=== PATIENT | female | born 1985 | race Caucasian/White ===

== ENCOUNTER 2020-11-02 11:15 | Outpatient (RCR) | payer OTHER, SELFPAY ==
[2020-10-05 09:59] VITALS: BP 116/79; PULSE 79
[2020-10-12 13:35] LABS: Hematocrit 37.4 % (37.0-47.0); Hemoglobin 12.9 g/dL (12.0-15.0); Mean Corpuscular HGB Conc 34.5 g/dl (32-36); Mean Corpuscular Hemoglobin 31.8 pg (26-34); Mean Corpuscular Volume 92.1 fl (80-100); Mean Platelet Volume 10.2 fl (7.4-10.4); Platelet Count Result 185 k/mm3 (150-375); Red Blood Count 4.06 M/mm3 (4.2-5.4); Red Cell Distribution Width 13.9 % (11.5-14.5)
[2020-10-12 13:37] LABS: Add Urine Microscopic? NO; Appearance Urine Clear (Clear); Bilirubin Urine Negative (Negative); Blood Urine Negative (Negative); Color Urine Straw (Yellow); Glucose Urine UA Negative (Negative); Ketones Urine Negative (Negative); Leukocyte Esterase Ur Negative LEU/UL (Negative); Nitrate Urine Negative (Negative); Protein Urine Negative (Negative); Specific Grav Ur 1.005 (1.001-1.035); Urobilinogen Urine Negative mg/dL (<2.0)
[2020-10-12 13:47] LABS: Alanine Aminotransferase 19 U/L (4-35); Albumin Level 3.4 g/dL (3.5-5.1); Alkaline Phosphatase 167 U/L (38-126); Anion Gap 4 mmol/L (8-16); Aspartate Amino Transferase 36 U/L (14-36); Bilirubin,Total 0.2 mg/dL (0.2-1.3); Blood Urea Nitrogen 13 mg/dL (7-17); Calcium 9.1 mg/dL (8.4-10.2); Carbon Dioxide 22 mmol/L (22-30); Chloride 107 mmol/L (98-107); Estimated Glomerular Filt Rate > 60; Glucose 71 mg/dL (65-105); Potassium 3.9 mmol/L (3.4-5.0); Sodium 133 mmol/L (137-145); Uric Acid 5.1 mg/dL (2.5-7.5)
[2020-10-12 14:10] LABS: Creatinine Urine 22.5 mg/dL; Total Protein Urine Random 13 mg/dL; Ur Ttl Prot Creatinine Ratio 0.58 mg/mg (0-0.20)
[2020-10-12 14:22] VITALS: BP 143/93; PULSE 71
--- NOTE | 2020-10-12 14:22 | PC.NURSE ---
PIH handout and warning signs of preeclampsia handout also given to and reviewed with pt. Pt verbalizes understanding.
[2020-10-15 10:32] VITALS: BP 136/88; PULSE 74
[2020-10-19 10:16] VITALS: BP 125/86; PULSE 84
[2020-10-22 13:56] VITALS: BP 132/90; PULSE 83
[2020-10-26 11:18] LABS: Basophils Percent Auto 0.3 % (0.2-1.2); Eosinophils Absolute Auto 0.1 K/mm3 (0-0.3); Eosinophils Percent Auto 0.8 % (0-4.4); Immature Granulocyte Absolute 0.04 K/mm3 (0.00-0.031); Immature Granulocyte Percent A 0.5 % (0-0.5); Lymphocytes Absolute Auto 1.46 K/mm3 (0.9-3.2); Lymphocytes Percent Auto 18.8 % (18.3-44.2); Mean Corpuscular HGB Conc 34.2 g/dl (32-36); Mean Corpuscular Hemoglobin 31.5 pg (26-34); Mean Platelet Volume 10.5 fl (7.4-10.4); Monocytes Absolute Auto 0.7 K/mm3 (0.1-0.6); Monocytes Percent Auto 9.5 % (2.6-8.5); Neutrophils Absolute Auto 5.5 K/mm3 (1.3-6.7); Neutrophils Percent Auto 70.1 % (45.5-73.1); Platelet Count Result 157 k/mm3 (150-375); Red Blood Count 4.13 M/mm3 (4.2-5.4); Red Cell Distribution Width 14.2 % (11.5-14.5); White Blood Count 7.8 K/mm3 (4.5-10.0)
[2020-10-26 11:19] LABS: Add Urine Microscopic? NO; Appearance Urine Clear (Clear); Bilirubin Urine Negative (Negative); Blood Urine Negative (Negative); Color Urine Straw (Yellow); Glucose Urine UA Negative (Negative); Ketones Urine Negative (Negative); Leukocyte Esterase Ur Negative LEU/UL (NEGATIVE); Nitrate Urine Negative (Negative); Protein Urine Negative (Negative); Urobilinogen Urine Negative mg/dL (<2.0)
[2020-10-26 11:23] LABS: Creatinine Urine 17.2 mg/dL; Total Protein Urine Random 15 mg/dL; Ur Ttl Prot Creatinine Ratio 0.87 mg/mg (0-0.20)
[2020-10-26 11:29] LABS: Alanine Aminotransferase 16 U/L (4-35); Albumin Level 3.4 g/dL (3.5-5.1); Alkaline Phosphatase 178 U/L (38-126); Anion Gap 5 mmol/L (8-16); Aspartate Amino Transferase 35 U/L (14-36); Bilirubin,Total 0.3 mg/dL (0.2-1.3); Blood Urea Nitrogen 13 mg/dL (7-17); Calcium 9.2 mg/dL (8.4-10.2); Carbon Dioxide 22 mmol/L (22-30); Chloride 105 mmol/L (98-107); Estimated Glomerular Filt Rate > 60; Glucose 79 mg/dL (65-105); Potassium 4.5 mmol/L (3.4-5.0); Sodium 132 mmol/L (137-145); Uric Acid 5.9 mg/dL (2.5-7.5)
[2020-10-26 11:57] LABS: Specific Grav Ur 1.004 (1.001-1.035)
--- NOTE | 2020-10-26 12:51 | PM.OBTRLD ---
OB - Triage/Final Diagnosis Visit Information Date of evaluation: 10/26/20 Reason for evaluation: other (twins/gest htn) Comments/Additional reasons for admission: I have assessed the risk for this patient, Suzie Montalvo, and determined that she would benefit from observation care. Evaluation Laboratory results: Laboratory Tests 10/12/20 10/12/20 10/12/20 13:12 13:12 13:12 WBC 9.0 RBC 4.06 L Hgb 12.9 Hct 37.4 MCV 92.1 MCH 31.8 MCHC 34.5 RDW 13.9 Plt Count 185 MPV 10.2 Immature Gran % (Auto) Neut % (Auto) Lymph % (Auto) [place] % (Auto) Eos % (Auto) Baso % (Auto) Lymph # (Auto) [place] # (Auto) Eos # (Auto) Baso # (Auto) Abs Immat Gran (auto) Absolute Neuts (auto) Absolute Nucleated RBC Nucleated RBC % Sodium Potassium Chloride Carbon Dioxide Anion Gap BUN Creatinine Estim Creat Clear Calc Estimated GFR Glucose Uric Acid Calcium Total Bilirubin AST ALT Alkaline Phosphatase Total Protein Albumin Urine Color Straw Urine Appearance Clear Urine pH 7.0 Ur Specific [place] 1.005 Urine Protein Negative Urine Glucose (UA) Negative Urine Ketones Negative Ur Blood (Man) Negative Urine Nitrate Negative Urine Bilirubin Negative Urine Urobilinogen Negative Ur Leukocyte Esterase Leukocyte Esterase Rfl Negative U Random Total Protein 13 Urine Creatinine 22.5 Protein/Creat Ratio 2 0.58 H 10/12/20 10/26/20 10/26/20 13:12 11:03 11:03 WBC RBC Hgb Hct MCV MCH MCHC RDW Plt Count MPV Immature Gran % (Auto) Neut % (Auto) Lymph % (Auto) [place] % (Auto) Eos % (Auto) Baso % (Auto) Lymph # (Auto) [place] # (Auto) Eos # (Auto) Baso # (Auto) Abs Immat Gran (auto) Absolute Neuts (auto) Absolute Nucleated RBC Nucleated RBC % Sodium 133 L Potassium 3.9 Chloride 107 Carbon Dioxide 22 Anion Gap 4 L BUN 13 Creatinine 0.70 Estim Creat Clear Calc Not Reportable Estimated GFR > 60 Glucose 71 Uric Acid 5.1 Calcium 9.1 Total Bilirubin 0.2 AST 36 ALT 19 Alkaline Phosphatase 167 H Total Protein 6.0 L Albumin 3.4 L Urine Color Straw Urine Appearance Clear Urine pH 7.0 Ur Specific [place] 1.004 Urine Protein Negative Urine Glucose (UA) Negative Urine Ketones Negative Ur Blood (Man) Negative Urine Nitrate Negative Urine Bilirubin Negative Urine Urobilinogen Negative Ur Leukocyte Esterase Negative Leukocyte Esterase Rfl U Random Total Protein 15 Urine Creatinine 17.2 Protein/Creat Ratio 2 0.87 H 10/26/20 10/26/20 11:03 11:03 WBC 7.8 RBC 4.13 L Hgb 13.0 Hct 38.0 MCV 92.0 MCH 31.5 MCHC 34.2 RDW 14.2 Plt Count 157 MPV 10.5 H Immature Gran % (Auto) 0.5 Neut % (Auto) 70.1 Lymph % (Auto) 18.8 [place] % (Auto) 9.5 H Eos % (Auto) 0.8 Baso % (Auto) 0.3 Lymph # (Auto) 1.46 [place] # (Auto) 0.7 H Eos # (Auto) 0.1 Baso # (Auto) 0.0 Abs Immat Gran (auto) 0.04 H Absolute Neuts (auto) 5.5 Absolute Nucleated RBC 0.0 Nucleated RBC % 0.0 Sodium 132 L Potassium 4.5 Chloride 105 Carbon Dioxide 22 Anion Gap 5 L BUN 13 Creatinine 0.70 Estim Creat Clear Calc Not Reportable Estimated GFR > 60 Glucose 79 Uric Acid 5.9 Calcium 9.2 Total Bilirubin 0.3 AST 35 ALT 16 Alkaline Phosphatase 178 H Total Protein 6.0 L Albumin 3.4 L Urine Color Urine Appearance Urine pH Ur Specific [place] Urine Protein Urine Glucose (UA) Urine Ketones Ur Blood (Man) Urine Nitrate Urine Bilirubin Urine Urobilinogen Ur Leukocyte Esterase Leukocyte Esterase Rfl U Random Total Protein Urine Creatinine Protein/Creat Ratio 2
[2020-10-29 15:49] VITALS: BP 140/83; PULSE 83
[2020-11-02 11:40] VITALS: BP 132/85; PULSE 85
--- NOTE | 2020-11-03 07:38 | PM.IMHP ---
H&P: HPI History of Present Illness Date/Time: 11/03/20 07:38 35-year-old 6 para 1 whose last menstrual period was 02/19/2020, EDC is 11/21/2020, presents at 38 weeks gestation for primary section. She has a diamniotic dichorionic twin with an abnormal lie of twin a. Her blood pressures have been rising. Early ultrasound confirmed dates Chief Complaint: diamniotic dichorionic twins with abnormal lie and elevated blood pressures at term Review of Systems Review of Systems: All systems reviewed & are unremarkable except as noted in HPI and below Meds Home Medications and Allergies Home Medications Medication Instructions Recorded Confirmed Type PNV cmb#95-ferrous fumarate-FA 1 tablet PO HS 10/12/20 10/12/20 History [] aspirin [Adult Low Dose Aspirin] 162 mg PO HS 10/12/20 10/12/20 History cholecalciferol (vitamin D3) 125 mcg PO DAILY 10/12/20 10/12/20 History [Vitamin D3] docusate sodium [Colace] 100 mg PO DAILY PRN 10/12/20 10/12/20 History Allergies Allergy/AdvReac Type Severity Reaction Status Date / Time No Known Allergies Allergy Verified 10/12/20 12:21 Vital Signs Vital Signs - 24 hr 11/02/20 11:40 Pulse Rate 85 Blood Pressure [Left Arm] 132/85 Exam Const: General: no acute distress Eyes: General: appearance normal, both eyes and all related structures Neck: Neck: supple and no JVD Thyroid: thyroid normal Resp: Effort & Inspection: normal respiratory effort Auscultation: clear to auscultation bilaterally Cardio: Rate: regular rate Rhythm: regular rhythm GI: Inspection: non-distended GI Palp: Yes Soft to palpation, No Tenderness to palpation present (GI) and No Guarding due to palpation present (GI) Auscultation: normal bowel sounds : External Female Exam: normal external appearance Speculum Exam - Vagina: normal appearance of the vagina Speculum Exam - Cervix: Cervical os closed ( cervix 1cm in thick) Bimanual exam- vagina & uterus: enlarged (Gravid uterus consistent with twins) Skin: General skin exam: no rashes or lesions noted Extrem: General: normal to inspection and no edema Psych: Mental Status: mental status grossly normal Affect: normal affect Assessment and Plan Additional Plan impression: Twin with abnormal lie elevated blood pressures at 38 weeks Plan: Primary low-transverse section. PIH labs will be drawn
== END 2020-11-09 07:41 | disposition home or self-care (01) ==
LOC: ANHOBOP 11:15
PROVIDERS: Visit Provider Obstetrics & Gynecology
DX: O30.003 Twin pregnancy, unspecified number of placenta and unspecified number of amniotic sacs, third trimester (principal); Z3A.32 32 weeks gestation of pregnancy; Z3A.33 33 weeks gestation of pregnancy; Z3A.34 34 weeks gestation of pregnancy; Z3A.35 35 weeks gestation of pregnancy; Z3A.36 36 weeks gestation of pregnancy; Z3A.37 37 weeks gestation of pregnancy
CPT/HCPCS: 36415; 59025; 80053; 81003; 82570; 84156; 84550; 85025; 85027; 87086

== ENCOUNTER 2020-11-04 10:35 | Outpatient (CLI) | payer OTHER, SELFPAY ==
[2020-11-04 10:59] LABS: Hematocrit 38.8 % (37.0-47.0); Hemoglobin 13.3 g/dL (12.0-15.0); Mean Corpuscular HGB Conc 34.3 g/dl (32-36); Mean Corpuscular Hemoglobin 31.5 pg (26-34); Mean Corpuscular Volume 91.9 fl (80-100); Mean Platelet Volume 10.7 fl (7.4-10.4); Platelet Count Result 148 k/mm3 (150-375); Red Blood Count 4.22 M/mm3 (4.2-5.4); Red Cell Distribution Width 14.5 % (11.5-14.5); White Blood Count 7.5 K/mm3 (4.5-10.0)
[2020-11-05 06:47] LABS: Rapid Plasma Reagin Non-Reactive (NonReactive)
== END 2020-11-04 10:36 | disposition home or self-care (01) ==
PROVIDERS: Visit Provider Obstetrics & Gynecology
DX: Z01.812 Encounter for preprocedural laboratory examination (principal); Z51.81 Encounter for therapeutic drug level monitoring; Z79.899 Other long term (current) drug therapy
CPT/HCPCS: 36415; 85027; 86592; 86850; 86900; 86901

== ENCOUNTER 2020-11-05 05:32 | Inpatient (IN) | payer OTHER, SELFPAY ==
--- NOTE | 2020-11-03 07:41 | HP_ITS ---
This report was moved to the correct visit, [id number], on November 10, 2020. Original report was signed by Dr. Terrell Dorado on November 03, 2020 at 07:41. H&P: HPI History of Present Illness Date/Time: 11/03/20 07:38 35-year-old 6 para 1 whose last menstrual period was 02/19/2020, EDC is 11/21/2020, presents at 38 weeks gestation for primary section. She has a diamniotic dichorionic twin with an abnormal lie of twin a. Her blood pressures have been rising. Early ultrasound confirmed dates Chief Complaint: diamniotic dichorionic twins with abnormal lie and elevated blood pressures at term Review of Systems Review of Systems: All systems reviewed & are unremarkable except as noted in HPI and below Meds Home Medications and Allergies Home Medications Medication Instructions Recorded Confirmed Type PNV cmb#95-ferrous fumarate-FA 1 tablet PO HS 10/12/20 10/12/20 History [] aspirin [Adult Low Dose Aspirin] 162 mg PO HS 10/12/20 10/12/20 History cholecalciferol (vitamin D3) 125 mcg PO DAILY 10/12/20 10/12/20 History [Vitamin D3] docusate sodium [Colace] 100 mg PO DAILY PRN 10/12/20 10/12/20 History Allergies Allergy/AdvReac Type Severity Reaction Status Date / Time No Known Allergies Allergy Verified 10/12/20 12:21 Vital Signs Vital Signs - 24 hr 11/02/20 11:40 Pulse Rate 85 Blood Pressure [Left Arm] 132/85 Exam Const: General: no acute distress Eyes: General: appearance normal, both eyes and all related structures Neck: Neck: supple and no JVD Thyroid: thyroid normal Resp: Effort & Inspection: normal respiratory effort Auscultation: clear to auscultation bilaterally Cardio: Rate: regular rate Rhythm: regular rhythm GI: Inspection: non-distended GI Palp: Yes Soft to palpation, No Tenderness to palpation present (GI) and No Guarding due to palpation present (GI) Auscultation: normal bowel sounds : External Female Exam: normal external appearance Speculum Exam - Vagina: normal appearance of the vagina Speculum Exam - Cervix: Cervical os closed ( cervix 1cm in thick) Bimanual exam- vagina & uterus: enlarged (Gravid uterus consistent with twins) Skin: General skin exam: no rashes or lesions noted Extrem: General: normal to inspection and no edema Psych: Mental Status: mental status grossly normal Affect: normal affect Assessment and Plan Additional Plan impression: Twin with abnormal lie elevated blood pressures at 38 weeks Plan: Primary low-transverse section. PIH labs will be drawn This dictation may have been done utilizing a voice recognition system. Attempts have been made to correct errors. However, there may be uncorrected grammatical, spelling, and recognition errors present. Report Initialized date/time: Terrell Roman MD 11/03/20740 Electronically signed by: Terrell Roman MD 11/03/20 0741 [facility]
--- NOTE | 2020-11-04 10:20 | WPDANESEPPF ---
Anes - Initial Pre Proc Eval Procedure: Operation Date: 11/05/20 07:30 Proposed Procedures p Primary Twins Section - Terrell Dorado MD Date/Time: 11/04/20 10:20 Surgeon: Terrell Dorado MD Pre Op Diagnosis: twins Patient Data Age: 35 Gender: F Height: Weight: Allergies Allergy/AdvReac Type Severity Reaction Status Date / Time No Known Allergies Allergy Verified 10/22/20 12:47 Home Medications Medication Instructions Recorded Confirmed Type aspirin [Aspirin Low Dose] 162 mg PO DAILY 10/22/20 10/22/20 History cholecalciferol (vitamin D3) 125 mcg PO DAILY 10/22/20 10/22/20 History [Vitamin D3] prenat.vits,ellen,ucs-cehs-qlflq 1 tablet PO DAILY 10/22/20 10/22/20 History [ #2] hydrocodone-acetaminophen 1 tablet PO Q4H PRN #30 tablet 11/05/20 Rx Patient hx anesthesia problems: none Family hx anesthesia problems: none PMFSH Past Medical History Medical History (Updated 11/05/20 @ 06:22 by Terrell Dorado MD) Gestational hypertension IBS (irritable bowel syndrome) Family History Family History (Updated 10/22/20 @ 12:51 by Quincy Mitchell RN) Mother Skin cancer Crohn disease Asthma Grandparent Alzheimer disease Social History Social History Smoking status: Never smoker Second hand tobacco smoke exposure: No Substance use: never Spiritual care concerns: No Anes - Eval Final PreProcedure Day of Procedure 11/04/20 10:20 Patient weight: obese Heart: regular rate and rhythm Lungs: clear to auscultation and normal air movement Airway: Mallampati scale class II Neurological: alert and oriented Last oral intake: >/= 8 hours ASA classification: III Emergent: no Anesthetic plan: proceed Anesthesia type and monitoring: regional spinal and standard monitoring Informed Consent: The patient's anesthetic plan and its attendant risks and benefits were discussed with the patient/family/POA. Questions were solicited and answers provided to the satisfaction of the patient/family/POA.
[2020-11-05] VITALS (77 sets, daily range): BP systolic 93–157; BP diastolic 41–102; PULSE 51–82; RESP 14–18; TEMP 36.1–36.2; O2SAT 95–100; BMI 33.1
[2020-11-05] MEDS: LACTATED RINGERS 1,000 ML 125 ML IV CONT ×2 (06:09→06:49)
--- NOTE | 2020-11-05 06:20 | WPDHPUPDATE1 ---
History and Physical Update Update Date/Time: 11/05/20 06:20 History and Physical has been reviewed, including an updated exam of the patient. There are NO changes in the patient's condition. Risks, benefits, and alternatives have been discussed and questions answered. Patient agrees to proceed with procedure.
--- NOTE | 2020-11-05 06:33 | LDADM ---
This patient, Suzie Montalvo, was admitted to Labor/Delivery/Recovery 120 on 11/05/20 at 05:32. Plans for labor, pain management and were discussed with patient. Patient/family oriented to hospital policies and general routines including ID bracelet, bed and alarms, visiting hours, pain management, procedures, bathroom and other care routines, personal items, smoking policy, room service/diet and guest tray routines, infant security routines, and visiting hours. Patient/Family are encouraged to report perceived risks to care and to ask questions if they do not understand what they are told or what they should do. See OBIX for further documentation.
--- NOTE | 2020-11-05 07:57 | PM.PROC ---
Procedure Note - Detailed Date of procedure: 11/05/20 Pre-op diagnosis: twins Surgeon: Terrell Dorado MD Postop diagnosis: 37 half week twins/malpresentation/gestational hypertension Procedure: Primary low transverse section Anesthesia: Spinal Findings: Baby a breech 5 lb 12 oz Apgars 8 and 9 at 1 and 5 minutes respectively baby B 5 lb 12 oz transverse with Apgars of 8 and 9 Complications: None Description of procedure: The patient was prepped and draped in the normal sterile fashion placed in dorsal in the supine position under excellent spinal anesthetic the abdomen was entered in Pfannenstiel fashion progressive layers of fascia. The fascia was incised in upward outward fashion bilaterally. Underlying muscles were sharply dissected. Parietal perineum L by Estrella clamps and by sharp dissection carried. This was carried superiorly and inferiorly to the dome of bladder. Bladder blade was placed and bladder flap was formed. Bladder bladder flap blade returned and low-transverse incision made baby B was delivered in the breech position cord clamped x2 and cut and passed off the table given Apgars of 8 [id number] and 9 [id number]. Placenta was under went to a blood draw. Baby B was transverse placed in the vertex position and delivered given Apgars of 8 [id number] 9 [id number]. Cord blood was drawn. Placentas were delivered intact manually uterus delivering the abdomen wrapped in a moist towel. After assuring no membranes or debris remained in the uterus uterus was closed with continuous running 0 Vicryl from lateral edge lateral edge followed by a 2nd imbricating running locking 0 Vicryl from lateral edge to lateral edge. Hemostasis was assured ovaries and tubes appeared within normal limits and the uterus returned to the abdomen. Laps removed and accounted for the fascia closed with continuous running 0 Vicryl from lateral edge to midline bilaterally. Irrigation subcutaneous layer and the skin closed with 4 O Monocryl and glue patient tolerated the procedure well. All sponge, needle, instrument counts were correct. Mom and baby doing fine at the time of dictation
[2020-11-05] MEDS: OXYTOCIN 30 UNITS/NS 500 ML 30 UNITS/500 ML BAG 125 UNITS IV CONT (08:14)
--- NOTE | 2020-11-05 10:00 | PC.NURSE ---
Nursery called to assist mother with twins and nursing. 0845 Assisted with A to breast. Reviewed positioning/alignment in cross cradle, holding breast in ?U? hold and guided asymmetrical latch on. able to latch correctly. nursed eagerly, with steady draws and frequent swallowing noted. Reviewed signs of a correct latch, effective nursing and suck swallow ratio. Infant was able to maintain latch without discomfort to mother. 1000 Assisted with infant B to breast. Reviewed positioning/alignment in football, holding breast in ?C? hold and guided asymmetrical latch on. Infant able to latch correctly. nursed eagerly, with steady draws and occasional swallowing followed with long pausing. noted. Reviewed signs of a correct latch, effective nursing and suck swallow ratio. was able to maintain latch without discomfort to mother. Advised mother to stimulate while feeding to keep infant in an effective nursing pattern for increased intake and stimulation of supply.
[2020-11-05] MEDS: DEXTROSE 5%/0.45% SOD CHL 1,000 ML 125 ML IV CONT (13:15)
[2020-11-05] MEDS: HYDROcodone/acetaminophen (*CRX) 10-325 MG TABLET 1 TAB PO (13:16)
--- NOTE | 2020-11-05 14:23 | PC.NURSE ---
Patient transferred to post room #277 per stretcher from labor and delivery. Support person present. Oriented to unit, room, information board, rooming in, admission packet and security measures. Patient verbalizes understanding.
--- NOTE | 2020-11-05 14:38 | PC.NURSE ---
1420--Pt. up to room 277 via stretcher. Report to Fredo Ward RN to assume care of pt. at this time.
[2020-11-05] MEDS: KETOROLAC 30 MG/ML VIAL (*BKC) IV PUSH (16:01)
--- NOTE | 2020-11-05 16:30 | PC.NURSE ---
Assisted with B to breast. Reviewed positioning/alignment in football, holding breast in ?C? hold and guided asymmetrical latch on. able to latch correctly. Infant nursed eagerly, with with bursts of steady draws and occasional swallowing followed with long pausing. noted. Reviewed signs of a correct latch, effective nursing and suck swallow ratio. was able to maintain latch without discomfort to mother. Advised mother to stimulate while feeding to keep in an effective nursing pattern for increased intake and stimulation of supply.
[2020-11-05] MEDS: KCL 20 MEQ/D5/0.45% SOD CHL 1,000 ML 125 ML IV CONT (20:50)
[2020-11-06 00:20] VITALS: BP 129/70; PULSE 58; RESP 16; TEMP 36.1; O2SAT 97
[2020-11-06] MEDS: KETOROLAC 30 MG/ML VIAL (*BKC) IV PUSH (00:25)
[2020-11-06 04:05] VITALS: BP 115/66; PULSE 55; RESP 16; TEMP 36.1; O2SAT 100
[2020-11-06] MEDS: HYDROcodone/acetaminophen (*CRX) 5-325 MG TABLET 1 TAB PO ×3 (04:05→13:33)
[2020-11-06 05:43] LABS: Basophils Percent Auto 0.1 % (0.2-1.2); Eosinophils Absolute Auto 0.1 K/mm3 (0-0.3); Eosinophils Percent Auto 0.9 % (0-4.4); Hematocrit 30.8 % (37.0-47.0); Hemoglobin 10.3 g/dL (12.0-15.0); Immature Granulocyte Absolute 0.04 K/mm3 (0.00-0.031); Immature Granulocyte Percent A 0.5 % (0-0.5); Lymphocytes Absolute Auto 1.57 K/mm3 (0.9-3.2); Lymphocytes Percent Auto 21.2 % (18.3-44.2); Mean Corpuscular HGB Conc 33.4 g/dl (32-36); Mean Corpuscular Hemoglobin 31.6 pg (26-34); Mean Corpuscular Volume 94.5 fl (80-100); Mean Platelet Volume 10.8 fl (7.4-10.4); Monocytes Absolute Auto 0.6 K/mm3 (0.1-0.6); Monocytes Percent Auto 8.6 % (2.6-8.5); Neutrophils Absolute Auto 5.1 K/mm3 (1.3-6.7); Neutrophils Percent Auto 68.7 % (45.5-73.1); Platelet Count Result 125 k/mm3 (150-375); Red Blood Count 3.26 M/mm3 (4.2-5.4); Red Cell Distribution Width 14.5 % (11.5-14.5); White Blood Count 7.4 K/mm3 (4.5-10.0)
--- NOTE | 2020-11-06 07:21 | PM.OBPNVD ---
OB - PN: Subj Subjective Date/time seen: 11/06/20 07:21 Patient comments: no complaints and pain well controlled baby status: doing well and nursing well OB - PN: Obj Data Labs CBC & Chem 7: 11/06/20 05:02 Labs: Laboratory Results - last 24 hr 11/06/20 05:02 WBC 7.4 RBC 3.26 L Hgb 10.3 L D Hct 30.8 L MCV 94.5 MCH 31.6 MCHC 33.4 RDW 14.5 Plt Count 125 L MPV 10.8 H Immature Gran % (Auto) 0.5 Neut % (Auto) 68.7 Lymph % (Auto) 21.2 [place] % (Auto) 8.6 H Eos % (Auto) 0.9 Baso % (Auto) 0.1 L Lymph # (Auto) 1.57 [place] # (Auto) 0.6 Eos # (Auto) 0.1 Baso # (Auto) 0.0 Abs Immat Gran (auto) 0.04 H Absolute Neuts (auto) 5.1 Absolute Nucleated RBC 0.0 Nucleated RBC % 0.0 OB - PN A/P Plan day: 1 Plan: routine care Time Spent With Patient Time: Total time spent is greater than 50% in coordination of care (as documented) at patient's floor/unit and/or counseling patient: Time with patient: less than 15 minutes Review of Systems Review of Systems: All systems reviewed & are unremarkable except as noted in HPI and below Exam Const: General: no acute distress Eyes: General: appearance normal, both eyes and all related structures Neck: Neck: supple and no JVD Thyroid: thyroid normal Resp: Effort & Inspection: normal respiratory effort Auscultation: clear to auscultation bilaterally Cardio: Rate: regular rate Rhythm: regular rhythm GI: Inspection: non-distended GI Palp: Yes Soft to palpation, No Tenderness to palpation present (GI) and No Guarding due to palpation present (GI) Auscultation: normal bowel sounds : General: Yes bladder normal to palpation External Female Exam: normal external appearance Speculum Exam - Vagina: normal vaginal discharge and No vaginal bleeding Speculum Exam - Cervix: nontender Bimanual exam- vagina & uterus: bladder normal to palpation and No Cervical tenderness present OB/external & speculum: No vaginal bleeding Skin: General skin exam: no rashes or lesions noted Extrem: General: normal to inspection and no edema Psych: Mental Status: mental status grossly normal Affect: normal affect
[2020-11-06] MEDS: IBUPROFEN 600 MG TABLET PO ×3 (07:49→19:20)
[2020-11-06 07:50] VITALS: BP 120/66; PULSE 56; RESP 18; TEMP 36.8
[2020-11-06] MEDS: DOCUSATE SODIUM 100 MG CAPSULE PO ×2 (07:50→16:32)
--- NOTE | 2020-11-06 08:45 | WPDANLDPN2 ---
Anes-Prog Note L&D Date/Time: 11/06/20 08:45 Comfortable throughout: section Neuraxial method: spinal Epidural/Spinal procedure site: clean & non-tender Neuro status: Neuro function grossly intact. Cardiovascular status: normal Respiratory status: normal Airway patency: baseline Mental status: baseline Post-Op hydration status: normal Vital Signs: Last Vital Signs Temp 36.1 C L 11/06/20 04:05 Pulse 55 L 11/06/20 04:05 Resp 16 11/06/20 04:05 BP 115/66 11/06/20 04:05 Pulse Ox 100 11/06/20 04:05 Pain score (VAS): 2 I/O: Intake & Output 11/05/20 11/06/20 11/06/20 23:59 07:59 15:59 Intake Total 1400 2040 Output Total 1500 1400 Balance -100 640 Post-procedural complaints: none Patient feedback: Patient satisfied with anesthetic care.
--- NOTE | 2020-11-06 08:46 | WPDANLDNPN2 ---
Anes-Prog Note L&D-Neuraxial Date/Time: 11/06/20 08:46 Neuraxial medications: intrathecal PF morphine Opiod-related complaints: none Patient feedback: Patient satisfied with post-operative pain management.
[2020-11-06 12:30] VITALS: BP 125/71; PULSE 73; RESP 18; TEMP 36.8; O2SAT 100
[2020-11-06 16:30] VITALS: BP 131/70; PULSE 63; RESP 16; TEMP 36.6
[2020-11-06] MEDS: HYDROcodone/acetaminophen (*CRX) 10-325 MG TABLET 1 TAB PO ×2 (16:31→19:19)
[2020-11-06] MEDS: SIMETHICONE 80 MG TAB.CHEW PO (19:19)
[2020-11-06 20:45] VITALS: BP 133/75; PULSE 64; RESP 18; TEMP 36.3
[2020-11-07] VITALS (7 sets, daily range): BP systolic 103–139; BP diastolic 62–87; PULSE 63–81; RESP 16–20; TEMP 36.1–36.9; O2SAT 99–100
[2020-11-07] MEDS: IBUPROFEN 600 MG TABLET PO ×3 (05:36→20:32)
[2020-11-07] MEDS: HYDROcodone/acetaminophen (*CRX) 10-325 MG TABLET 1 TAB PO (05:37)
[2020-11-07] MEDS: DOCUSATE SODIUM 100 MG CAPSULE PO ×2 (07:07→16:00)
[2020-11-07] MEDS: SIMETHICONE 80 MG TAB.CHEW PO ×3 (07:07→15:59)
--- NOTE | 2020-11-07 07:38 | P.PNOB_ITS ---
OB - PN: Subj Subjective Date/time seen: 11/07/20 07:38 Patient comments: no complaints and pain well controlled baby status: doing well and nursing well OB - PN: Obj Data Labs CBC & Chem 7: 11/06/20 05:02 OB - PN A/P Plan day: 2 Plan: routine care Time Spent With Patient Time: Total time spent is greater than 50% in coordination of care (as yashira naqvi) at patient's floor/unit and/or counseling patient: Time with patient: less than 15 minutes Review of Systems Review of Systems: All systems reviewed & are unremarkable except as noted in HPI and below Exam Const: General: no acute distress Eyes: General: appearance normal, both eyes and all related structures Neck: Neck: supple and no JVD Thyroid: thyroid normal Resp: Effort & Inspection: normal respiratory effort Auscultation: clear to auscultation bilaterally Cardio: Rate: regular rate Rhythm: regular rhythm GI: Inspection: non-distended GI Palp: Yes Soft to palpation, No Tenderness to palpation present (GI) and No Guarding due to palpation present (GI) Auscultation: normal bowel sounds : General: Yes bladder normal to palpation External Female Exam: normal external appearance Speculum Exam - Vagina: normal vaginal discharge and No vaginal bleeding Speculum Exam - Cervix: nontender Bimanual exam- vagina & uterus: bladder normal to palpation and No Cervical tenderness present OB/external & speculum: No vaginal bleeding Skin: General skin exam: no rashes or lesions noted Extrem: General: normal to inspection and no edema Psych: Mental Status: mental status grossly normal Affect: normal affect
[2020-11-07] MEDS: HYDROcodone/acetaminophen (*CRX) 5-325 MG TABLET 1 TAB PO ×3 (12:01→20:33)
[2020-11-08] MEDS: IBUPROFEN 600 MG TABLET PO ×2 (03:03→08:03)
[2020-11-08] MEDS: HYDROcodone/acetaminophen (*CRX) 10-325 MG TABLET 1 TAB PO ×2 (03:03→13:14)
[2020-11-08 03:14] VITALS: BP 133/78; PULSE 66; RESP 18; TEMP 36.7; O2SAT 99
[2020-11-08 07:19] VITALS: BP 128/70; PULSE 69; RESP 18; TEMP 36.3
--- NOTE | 2020-11-08 08:00 | PC.NURSE ---
0800Consult with pt., mother reports infants are eagerly latching with pain at latch that decreases while nursing. Both infants have been exclusively breastfed. Both nipples are scabbed to center of nipple. Discussed latch and importance of deep latch for her comfort, increased intake for infants and stimulation of milk supply. Nipple care reviewed of lanolin after feedings, and warm compresses as needed. Reviewed frequencies, duration of feedings, feeding elimination flow sheet, and signs of adequate intake, transition to breast milk, signs of adequate intake, and engorgement/relief. Stressed to follow feeding/elimination flow sheet and call ICP if less than required output or more than one dark urine. 0840 Observed mother putting infant to breast, Infant B will latch shallow. Demonstrated how to adjust latch while feeding. Attempt 1-2 times, mother did not feel a relief. Suggested to break latch and latch again. Mother uses cross cradle holding breast in more of a C hold than U pulling straight forward. Suggested mother try asymmetrical latch, infant had a slightly deeper latch, requiring adjustment. Mother was able to correct latch to no discomfort with this attempt. nursed eagerly, with steady draws and frequent swallowing, followed with long pausing. Suggested mother stimulate while feeding to increase stimulate, increase intake and to assist with maintaining deep latch. Reviewed signs of a correct latch, effective nursing and suck swallow ratio. was able to maintain latch without discomfort to mother. Reviewed to rotate infants each feeding to opposite breast to start feeding. Stressed nipple care and calling for LC appointment if needed. Mother is feeding as required and waking infants to feed if needed. have had at least 8 effective feedings in the past 24 hours, and is currently meeting outcomes for weight, output, jaundice and feeding frequencies. Mother states she feels confident to continue effective at home. Instructed to call ICP if intake/output less than required. Reviewed regular medications mother is taking. Information provided per Lakshmi. Reviewed community resources on the [employer] website and in the Mom/Baby guide. Information on outpatient services provided. Mother has no further questions at this time.
[2020-11-08] MEDS: HYDROcodone/acetaminophen (*CRX) 5-325 MG TABLET 1 TAB PO (08:02)
[2020-11-08] MEDS: DOCUSATE SODIUM 100 MG CAPSULE PO (08:02)
[2020-11-08] MEDS: SIMETHICONE 80 MG TAB.CHEW PO (08:03)
--- NOTE | 2020-11-08 08:30 | PC.NURSE ---
Patient was given the opportunity to view the discharge video Mother & Baby Care, The First Two Weeks and to ask questions. Patient declined viewing the video and has been given the mother/baby guide for home reference.
--- NOTE | 2020-11-08 08:31 | P.DS_ITS ---
DS: Admitting Diagnosis Admitting Diagnosis Admitting Diagnosis: Twin gestation at term malpresentation OB - DS: Summary OB Procedures : None OB Procedures Intrapartum: OB Procedures: : None Peripartum Data Infant Delivery Method: Section Procedures: Procedures Operation Date: 11/05/20 07:30 Actual Procedure Side Surgeon p Section Terrell Dorado MD complications: none Status at Discharge Functional status at discharge: independent ambulation Overall status at discharge: patient is progressing back to baseline Time Spent with Patient Time attestation: Total time spent providing and/or coordinating discharge servi howard: Time spent: Less than 30 minutes Exam Const: General: comfortable and no acute distress Resp: Effort & Inspection: normal respiratory effort Auscultation: clear to auscultation bilaterally Cardio: Rate: regular rate GI: Inspection: non-distended GI Palp: Yes Soft to palpation, No Firmness to palpation present (GI), Yes Tenderness to palpation present (GI) (mild tenderness over incision ) and No Guarding due to palpation present (GI) Auscultation: normal bowel sounds Psych: Appearance: grossly normal Mental Status: mental status grossly normal Discharge Plan Discharge Attending physician on discharge: Terrell Dorado Discharging Clinician: Terrell Dorado Patient Disposition: Home, Self-Care Activity: may shower, no straining, may drive after 2 weeks and pelvic rest Diet: heart healthy Wound Care Instructions: follow printed instructions Patient Instructions: Antibiotic Form Stand Alone Forms: General Discharge Information Follow-up/Referrals: Terrell Dorado MD [Physician] - Discharge Medications: New hydrocodone-acetaminophen 5-325 mg tablet 1 tablet PO Q4H PRN (Reason: pain) Qty: 30 RF: 0 Continued aspirin [Aspirin Low Dose] 81 mg Tablet,Delayed Release (Dr/Ec) 162 mg PO DAILY RF: 0 #2 Tablet 1 tablet PO DAILY RF: 0 cholecalciferol (vitamin D3) [Vitamin D3] 125 mcg (5,000 unit) Tablet 125 mcg PO DAILY RF: 0 Date of admission: 11/05/20 05:32 Primary Care Provider: PHYSICIAN,PRODUCTION TECHNOLOGIST Admitting Provider: Terrell Dorado Attending physician on admission: Terrell Dorado Condition: Stable
--- NOTE | 2020-11-08 09:28 | PC.NURSE ---
Self care and infant care discharge instructions given including follow up visit date and time. Parents verbalized understanding. No questions or concerns voiced. at side.
--- NOTE | 2020-11-08 10:00 | PC.NURSE ---
Instructed pt. to continue using A&D ointment on right buttock.. Skin pink and healing. No further blistering noted. Left buttock normal. Skin warm and dry. No blisters noted anywhere on left buttock. Pt. verbalized understanding. No concerns voiced at this time.
--- NOTE | 2020-11-08 12:11 | PC.NURSE ---
0945 Observed mother putting to breast, A latched eagerly. nursed eagerly, with steady draws and frequent swallowing noted. Reviewed signs of a correct latch, effective nursing and suck swallow ratio. Infant was able to maintain latch without discomfort to mother. Mother voices concerns infant B does not latch as eagerly, deeply or is as vigorous as A . Advised both infants are different and may take time for B to be as eager, to continue to work with latch and stimulate while feeding.
[2020-11-10 10:05] VITALS: BP 146/87; PULSE 82; RESP 22; TEMP 36.9; O2SAT 100
== END 2020-11-08 13:24 | disposition home or self-care (01) | DRG 788 ==
LOC: ANHLDR 05:39 → ANHOB2 11-08 08:33 → ANHLDR 11-11 06:59 → ANHOB2 11-11 06:59
PROVIDERS: Admitting Provider Obstetrics & Gynecology; Visit Provider Student in an Organized Health Care Education/Training Program
PROC: 10D00Z1 Extraction of Products of Conception, Low, Open Approach (ICD-10-PCS; CPT 59514; principal; 2020-11-05 07:30)
DX: O30.043 Twin pregnancy, dichorionic/diamniotic, third trimester (principal); O32.1XX1 Maternal care for breech presentation, fetus 1; O13.4 Gestational [pregnancy-induced] hypertension without significant proteinuria, complicating childbirth; O32.2XX2 Maternal care for transverse and oblique lie, fetus 2; Z3A.38 38 weeks gestation of pregnancy; Z37.2 Twins, both liveborn
CPT/HCPCS: 36415; 59025; 85025; 85027; 86592; 86850; 86900; 86901; A9270; J0131; J1885; J2274; J2405; J2590; J3480; J7120

== ENCOUNTER 2024-07-09 08:47 | Outpatient (CLI) | payer OTHER, SELFPAY ==
--- NOTE | ~2024-07-09 | MM_ITS ---
EXAMINATION: MM screening ricardo BI w iraj HISTORY: Screening TECHNIQUE: Craniocaudal and mediolateral oblique 3-D tomosynthesis images were obtained and synthetic 2-D images were generated. CAD analysis was submitted and interpreted. COMPARISON: No prior mammogram is available for comparison at this institution. BREAST PARENCHYMAL COMPOSITION: Not dense: There are scattered areas of fibroglandular density. FINDINGS: There is no evidence of suspicious mass, calcification, or architectural distortion to sugg est malignancy in either breast. There has been no suspicious interval change. IMPRESSION: 1. No mammographic evidence of malignancy. 2. Recommend routine screening mammography in one year. BI-RADS Category 1: Negative Reviewed, dictated and finalized at location A. T LINE SUPERVISOR
--- OUTSIDE RECORDS SUMMARY | 2024-07-09 09:14 | XMS_ITS | Encounter Summary ---
Author Organization [facility] Address [address] [place] [address] Phone Care Team Providers Care Squeegeer And Former Name Role Phone Unknown, Notinfile Primary Care Provider Unavail able No, Physician Primary Care Provider [phone] Encounter Details Date Type Department Care Team (Late st Contact Info) Description 08/28/2017 Orders Only [facility] ProviderKatie MD [address] [place] [address] Social History Tobacco Use Types Packs/Day Years Used Date Smoking Tobacco: Never Assessed Comments Unknown Sex and Gender Information Value Date Recorded Sex Assigned at Not on file Legal Sex Female 6:17 PM ILLUMINATING ENGINEER Gender Identity Not on file Sexual Orientation Not on file documented as of this encounter Plan of Treatment Not on file documented as of this encounter Procedures Procedure Name Priority Date/Time Associated Diagnosis Comments CYTOLOGY 08/28/2017 12:00 AM CDT documented in this encounter Results * CYTOLOGY (08/28/2017 12:00 AM CDT) Narrative 08/28/2017 12:00 AM CDT Ordered by an unspecified provider. Historical Provider LAB CYTOLOGY ORDERABLES F inal Result documented in this encounter Visit Diagnoses Not on filedocumented in this encounter Additional Health Concerns Infection Onset Date Last Indicated Resolved Time COVID: Suspected 05/11/2020 05/11/2020 05/12/2020 8:54 PM ILLUMINATING ENGINEER COVID19 05/11/2020 05/11/2020 05/25/2020 3:08 AM ILLUMINATING ENGINEER COVID: Recovered Comment:Added based on recent COVID infection. 05/25/2020 05/25/2020 09/22/2020 3:05 AM C DT COVID: Suspected 05/27/2022 05/27/2022 05/27/2022 7:01 PM ILLUMINATING ENGINEER documented as of this encounter Care Teams Squeegeer And Former Relationship Specialty Start Date End Date Unknown, Notinfile PCP - General 04/20/18 11/24/18 No, Physician PCP - General 11/25/18 documented as of this encounter
--- OUTSIDE RECORDS SUMMARY | 2024-07-09 09:14 | XMS_ITS | Clinical Summary ---
Author Organization [address] Address [address] [place] [address] Care Team Providers Care Talent Manager Name Role Phone No, Physician Primary Care Provider [phone] Allergies No known active allergies Medications no.44-[id number]-BD-d ann 28 mg iron- 1 mg-200 mg capsule daily 01/16/2017 Active aspirin 81 mg enteric coated tablet Take 162 mg by mouth daily Active docusate sodium (COLACE) 100 mg capsuleIndicati ons:constipatio n Take 100 mg by mouth 2 (two) times a day Active polyethylene glycol (MIRALAX) 17 gram packetIndicatio ns:constipation Take 17 g by mouth daily Active al & mag hydroxide with simethicone-dip henhydramine-li docaine (MAGIC MOUTHWASH) suspension 1-1-1 Swish and swallow 5 mL every 6 (six) hours as needed (canker sores) 150 mL 10/30/2021 Active clotrimazole (MYCELEX) 10 mg ondina Take 1 tablet (10 mg total) by mouth 5 (five) times a day 70 Ondina 10/30/2021 Active Active Problems Problem Noted Date Diagnosed Date Choroid plexus cysts, , affecting care of mother, antepartum 06/25/2020 COVID-19 affecting in first trimester 05/28/2020 Overview (05/28/2020): + test 05/11 per pt. Already on ASA. Dichorionic diamniotic twin , antepartu m 05/03/2020 Overview (05/03/2020): First Trimester: [x] Labs [] Genetic Screeninnd Trimester: [] Anatomy ultrasound 3rd Trimester: [] CBC, HIV, syphilis screen [] 1hr GCT (26-28wks): [] Tdap (27-36wks) [] Rhogam (if Rh neg): [] GBS Surgical History Surgery Date Site/Laterality Comments DILATION AND CURETTAGE OF UTERUS 03/11/2018 - 8 Medical History Medical History Date Comments Recurrent loss, antepartum condition o r complication Abnormal Pap smear of cervix Family History Medical History Relation Name Comments Hypertension Father Hypertension Father's Sister Asthma Mother Crohn's disease Mother Breast cancer Neg Hx Ovarian cancer Neg Hx Uterine cancer Neg Hx Relation Name Status Comments Father Alive Father's Sister Mother Alive Social History Tobacco Use Types Packs/Day Years Used Date Smoking Tobacco: Never Smokeless Tobacco: Never Tobacco Cessation:Counseling Given: Not Answered Alcohol Use Standard Drinks/Week Comments Not Currently 0 (1 standard drink = 0.6 oz pur e alcohol) Personal Safety Answer Date Recorded Getting School Help Needed Not on file 08/05 Comments Unknown Sex and Gender Information Value Date Recorded Sex Assigned at Not on file Legal Sex Female 6:17 PM PRODUCTION CONTROL MANAGER Gender Identity Not on file Sexual Orientation Not on file Obstetrics History Para Term AB IAB SAB Ectopic Multiple Livin g Live Births 6 1 1 4 4 1 1 Date Outcome GA Total Labor Labor/2nd/3rd Weight Sex Type Anes PTL Prabha A1 A5 Name Clin 016 Term 38w 2d 2.722 kg (6 lb) F Vag-S pont Epidur al N Livin g Obern uefem Keeley craig, CNM Complications:None Delivery Location:This Facil [facility]y 018 SAB 9w0 d D&C Complications:None 10/2018 SAB 4w0 d SAB 11/2018 SAB 5w0 d SAB 06/2019 SAB 7w0 d SAB Last Filed Vital Signs Vital Sign Reading Time Taken Comments Blood Pressure 115/72 05/27/2022 6:36 PM PRODUCTION CONTROL MANAGER Pulse 89 05/27/2022 6:36 PM PRODUCTION CONTROL MANAGER Temperature 36.3 ??C (97.3 ??F) 05/27/2022 6:36 PM CS T Respiratory Rate 16 05/27/2022 6:36 PM PRODUCTION CONTROL MANAGER Oxygen Saturation 99% 05/27/2022 6:36 PM PRODUCTION CONTROL MANAGER Inhaled Oxygen Concentration - - Weight 54.9 kg (121 lb) 05/27/2022 6:36 PM PRODUCTION CONTROL MANAGER Height 154.9 cm (5' 1 ) 05/27/2022 6:36 PM PRODUCTION CONTROL MANAGER Body Mass Index 22.86 05/27/2022 6:36 PM PRODUCTION CONTROL MANAGER Plan of Treatment Health Maintenance Due Date Last Done Comments Depression Screening 1985 DTaP/Tdap/Td Vaccine (1 - Tdap) 1996 Varicella Vaccines (1 of 2 - 13+ 2-dose series) 1998 Hepatitis B Screening 2003 Regular Well Visit/Exam 18-64 2003 Cervical Cancer Screening 05/03/2021 05/03/2020 Influenza Vaccine (#1) 2024 9, 04/16/2017 Hepatitis C Screening Completed 05/03/2020 , 03/19/2018 HPV Vaccines Aged Out No longer eligi ble based on patient's age to complete this topic Pneumococcal vaccine <65 Aged Out No longer eligible based on patient's age to complete this topic Procedures Procedure Name Priority Date/Time Associated Diagnosis Comments HEPATITIS C ANTIBODY Routine 05/03/2020 11:30 AM PRODUCTION CONTROL MANAGER Encounter for supervision of normal in first trimester, unspecified THINPREP PAP WITH HPV Routine 05/03/2020 12:01 AM PRODUCTION CONTROL MANAGER Screening for cervical cancer from Last 3 Months or Most Recently Relevant to Health Maintenance Results * Hepatitis C antibody (05/03/2020 11:30 AM PRODUCTION CONTROL MANAGER) Hep C Ab NONREACT NONREACTIVE [facility] Comment: Siemens [employer] using KASHMIR (chemiluminescent immunoassay) technology. NONREACTIVE: Antibodies to Hepatitis C not detected. This does not exclude early acute Hepatitis C infection, possibility of exposure to Hepatitis C, antibodies below detection limit, or to lack of antibody reactivity to the antigen used in this assay. EQUIVOCAL: Antibodies to Hepatitis C may or may not be present. ??Sample to be confirmed by real-time PCR method. REACTIVE: Antibodies to Hepatitis C detected.Sample to be confirmed by real-time PCR method. Blood specimen (specimen) 05/03/2020 11:30 AM PRODUCTION CONTROL MANAGER 05/03/2020 12:02 PM PRODUCTION CONTROL MANAGER Narrative Resulting Agency Comment CLI us Gale Meneses MD LAB MICROBIOLOGY - GENERAL ORDER [place] Final Result [facility] [address] [place] [address], [facility] [phone] * ThinPrep Pap with HPV (05/03/2020 12:01 AM PRODUCTION CONTROL MANAGER) 05/03/2020 12:0 1 AM PRODUCTION CONTROL MANAGER 05/04/2020 9:04 AM PRODUCTION CONTROL MANAGER Narrative [facility] - 05/12/2020 9:50 AM PRODUCTION CONTROL MANAGER [facility] Department of Pathology [address] [place], [place] [id number] Final Report with Addendum Patient Name: ??SUZIE MONTALVOAvery Address: ??[address] [facility] [address], ?? [place], [place] ?? Gender: ??F : ??1985 (Age: 35) Service: ??Laboratory Location: ??Lab Hospital #: ??[id number] Patient Type: ?? Ref Lab Taken: ??05/03/2020 Received: ??05/04/2020 Accessioned:: ??05/07/2020 Reported: ??05/12/2020 Physician(s): Gale Meneses M.D. [facility] Diagnosis: Source of Specimen: ? Screening ThinPrep Imaged Pap w/HPV Specimen Adequacy: ?- Satisfactory for evaluation; endocervical/transformation zone component present General Category: ?- Negative for intraepithelial lesion or malignancy ?? SERGEY Shook(ASCP) SERGEY Armstrong(ASCP) Report Electronically Reviewed and Signed Out By ??SERGEY Armstrong(ASCP) ??05/12/2020 09:50:44 Addenda: HPV Test Interpretation NEGATIVE for types 16, 18, 31, 33, 35, 39, 45, 51, 52, 56, 58, 59, 66 and 68. Test performed utilizing Gen-Probe Aptima assay. ?? SERGEY Armstrong(ASCP) ??Report Electronically Reviewed and Signed Out By ??SERGEY Armstrong(ASCP) ??05/10/2020 10:38:56 ? Specimen(s) Received: A: Screening ThinPrep Imaged Pap w/HPV Clinical History: Last Menstrual Period: 02/19/2020 Menstrual History: The Pap test is a screening test used to aid in the detection of cervical cancer and its precursors. ??It should not be the sole means by which malignant and premalignant lesions are diagnosed. ??Both false negative and false positive results may occur. ?? It also has poor sensitivity for the detection of endometrial lesions and should not be used to evaluate suspected endometrial abnormalities. ??For these reasons it is most important to obtain Pap tests at regular intervals. The performance characteristics of some immunohistochemical stains, fluorescence in-situ hybridization tests and immunophenotyping by flow cytometry cited in this report (if any) were determined by the Surgical Pathology Department at [facility] as part of an ongoing manager of quality program and in compliance with federally mandated regulations drawn from the Clinical Laboratory Improvement Act of 1988 (CLIA '88). ??Some of these tests rely on the use of analyte specific reagents and are subject to specific labeling requirements by the US Food and Drug Administration. ??Such diagnostic tests may only be performed in a facility that is certified by the Department of Health and Human Services as a high complexity laboratory under CLIA '88. The FDA has determined that such clearance or approval is not necessary. ??This test is used for clinical purposes. ??It should not be regarded as investigational or for research. ??Nevertheless, federal rules concerning the medical use of analyte specific reagents require that the following disclaimer be attached to the report: This test was developed and its performance characteristics determined by the Surgical Pathology Department [facility]. ??It has not been cleared or approved by the U. S. Food and Drug Administration. Gale Meneses MD LAB CYTOLOGY ORDERABLES Final Re sult [id number] [place] [address], [facility] [phone] from Last 3 Months or Most Recently Relevant to Health Maintenance Insurance [facility] [place] H[facility] [employer]/PPO Address: [address] [address] [place] [address] [facility] [place] H[facility] Care Teams Talent Manager Relationship Specialty Start Date End Date No, Physician PCP - General 11/25/18
--- OUTSIDE RECORDS SUMMARY | 2024-07-09 09:14 | XMS_ITS | Encounter Summary ---
Author Organization [facility] Facility Care Team Providers Care Physicians And Surgeons Name Role Phone Unknown, Notinfile Primary Care Provider Unavail able No, Physician Primary Care Provider [phone] Encounter Details Date Type Department Care Team (Latest Contact Info) Description 01/17/2016 Orders Only [facility] Provider, MD Katie [address] [place] [address] Social History Tobacco Use Types Packs/Day Years Used Date Smoking Tobacco: Never Assessed Comments Unknown Sex and Gender Information Value Date Recorded Sex Assigned at Not on file Legal Sex Female 6:17 PM DIRECTOR CHECK Gender Identity Not on file Sexual Orientation Not on file documented as of this encounter Plan of Treatment Not on file documented as of this encounter Procedures Procedure Name Priority Date/Time Associated Diagnosis Comments SCAN - LABS 01/17/2016 12:00 AM CDT documented in this encounter Results * SCAN - LABS (01/17/2016 12:00 AM CDT) Narrative 01/17/2016 12:00 AM CDT Ordered by an unspecified provider. Historical Provider Final Res ult documented in this encounter Visit Diagnoses Not on filedocumented in this encounter Additional Health Concerns Infection Onset Date Last Indicated Resolved Time COVID: Suspected 05/11/2020 05/11/2020 05/12/2020 8:54 PM DIRECTOR CHECK COVID19 05/11/2020 05/11/2020 05/25/2020 3:08 AM DIRECTOR CHECK COVID: Recovered Comment:Added based on recent COVID infection. 05/25/2020 05/25/2020 09/22/2020 3:05 AM C DT COVID: Suspected 05/27/2022 05/27/2022 05/27/2022 7:01 PM DIRECTOR CHECK documented as of this encounter Care Teams Physicians And Surgeons Relationship Specialty Start Date End Date Unknown, Notinfile PCP - General 04/20/18 11/24/18 No, Physician PCP - General 11/25/18 documented as of this encounter
--- OUTSIDE RECORDS SUMMARY | 2024-07-09 09:14 | XMS_ITS | Referral Summary ---
Author Organization [address] Address [address] [place] [address] Care Team Providers Care Welder Apprentice Combination Name Role Phone No, Physician Primary Care Provider [phone] Allergies No known active allergies Medications no.28-pyvb-MG-d ann 28 mg iron- 1 mg-200 mg [...] [] Rhogam (if Rh neg): [] GBS Social History Tobacco Use Types Packs/Day Years [...] on file Legal Sex Female 6:17 PM CAP LINING MACHINE OPERATOR Gender Identity Not on file Sexual Orientation Not on file Last Filed Vital Signs Vital Sign Reading Time Taken Comments Blood Pressure 115/72 05/27/2022 6:36 PM CAP LINING MACHINE OPERATOR Pulse 89 05/27/2022 6:36 PM CAP LINING MACHINE OPERATOR Temperature 36.3 ??C (97.3 ??F) 05/27/2022 6:36 PM CS T Respiratory Rate 16 05/27/2022 6:36 PM CAP LINING MACHINE OPERATOR Oxygen Saturation 99% 05/27/2022 6:36 PM CAP LINING MACHINE OPERATOR Inhaled Oxygen Concentration - - Weight 54.9 kg (121 lb) 05/27/2022 6:36 PM CAP LINING MACHINE OPERATOR Height 154.9 cm (5' 1 ) 05/27/2022 6:36 PM CAP LINING MACHINE OPERATOR Body Mass Index 22.86 05/27/2022 6:36 PM CAP LINING MACHINE OPERATOR Plan of Treatment Not on file Procedures Procedure Name Priority Date/Time Associated Diagnosis Comments HEPATITIS C ANTIBODY Routine 05/03/2020 11:30 AM CAP LINING MACHINE OPERATOR Encounter for supervision of normal in first trimester, unspecified THINPREP PAP WITH HPV Routine 05/03/2020 12:01 AM CAP LINING MACHINE OPERATOR Screening for cervical cancer from Last 3 Months or Most Recently Relevant to Health Maintenance Results * Hepatitis C antibody (05/03/2020 11:30 AM CAP LINING MACHINE OPERATOR) Hep C Ab NONREACT NONREACTIVE [facility] Comment: Siemens CentaurXP using KASHMIR (chemiluminescent immunoassay) technology. NONREACTIVE: Antibodies [...] method. Blood specimen (specimen) 05/03/2020 11:30 AM CAP LINING MACHINE OPERATOR 05/03/2020 12:02 PM CAP LINING MACHINE OPERATOR Narrative Resulting Agency Comment CLI us Gale Meneses MD LAB MICROBIOLOGY - GENERAL [place] [address], [facility] [phone] * ThinPrep Pap with HPV (05/03/2020 12:01 AM CAP LINING MACHINE OPERATOR) 05/03/2020 12:0 1 AM CAP LINING MACHINE OPERATOR 05/04/2020 9:04 AM CAP LINING MACHINE OPERATOR Narrative [facility] - 05/12/2020 9:50 AM CAP LINING MACHINE OPERATOR [facility] Department of Pathology [address] [place] [address] Final Report with Addendum Patient Name: ??SUZIE MONTALVOAvery Address: ??[address] [place] [address], ?? [place], [place] ?? Gender: ??F : ??1985 (Age: 35) Service: ??Laboratory Location: ??Lab Hospital #: ??[id number] Patient Type: ?? Ref Lab Taken: ??05/03/2020 Received: ??05/04/2020 Accessioned:: ??05/07/2020 Reported: ??05/12/2020 Physician(s): Gale Meneses M.D. [facility] Diagnosis: Source of Specimen: ? Screening ThinPrep Imaged Pap w/HPV Specimen Adequacy: ?- Satisfactory for evaluation; endocervical/transformation zone component present General Category: ?- Negative for intraepithelial lesion or malignancy ?? Devora Monroe, SERGEY(ASCP) SERGEY Armstrong(ASCP) Report Electronically Reviewed and Signed Out By ??SERGEY Armstrong(ASCP) ??05/12/2020 09:50:44 Addenda: HPV Test Interpretation NEGATIVE for types 16, 18, 31, 33, 35, 39, 45, 51, 52, 56, 58, 59, 66 and 68. Test performed utilizing Gen-[employer] Aptima assay. ?? SERGEY Armstrong(ASCP) ??Report Electronically [...] determined by the Surgical Pathology Department at [facility] as part of an ongoing bottle house quality control technician program and in compliance with federally mandated [...] characteristics determined by the Surgical Pathology Department [facility]. ??It has not been cleared or approved by the U. S. Food and Drug Administration. Gale Meneses MD LAB CYTOLOGY ORDERABLES Final Re sult Performing Organization Address City/State/[facility] Co de Phone Number [address] [phone] from Last 3 Months or Most Recently Relevant to Health Maintenance Insurance [facility] HMO CHOICE PLUS [facility] H[facility] Care Teams Welder Apprentice Combination Relationship Specialty Start Date End Date No, Physician PCP - General 11/25/18
--- OUTSIDE RECORDS SUMMARY | 2024-07-09 09:14 | XMS_ITS | Encounter Summary ---
Author Organization [facility] Facility Care Team Providers Care Revenue Manager Name Role Phone Unknown, Notinfile Primary Care Provider Unavail able No, Physician Primary Care Provider [phone] Encounter Details Date Type Department Care Team (Latest Contact Info) Description 07/15/2015 Orders Only [facility] Provider, MD Katie [address] [place] [address] Social History Tobacco Use Types Packs/Day Years Used Date Smoking Tobacco: Never Assessed Comments Unknown Sex and Gender Information Value Date Recorded Sex Assigned at Not on file Legal Sex Female 6:17 PM GLOBAL COORDINATOR Gender Identity Not on file Sexual Orientation Not on file documented as of this encounter Plan of Treatment Not on file documented as of this encounter Procedures Procedure Name Priority Date/Time Associated Diagnosis Comments SCAN - LABS 07/15/2015 12:00 AM GLOBAL COORDINATOR documented in this encounter Results * SCAN - LABS (07/15/2015 12:00 AM GLOBAL COORDINATOR) Narrative 07/15/2015 12:00 AM GLOBAL COORDINATOR Ordered by an unspecified provider. Historical Provider Final Res ult documented in this encounter Visit Diagnoses Not on filedocumented in this encounter Additional Health Concerns Infection Onset Date Last Indicated Resolved Time COVID: Suspected 05/11/2020 05/11/2020 05/12/2020 8:54 PM GLOBAL COORDINATOR COVID19 05/11/2020 05/11/2020 05/25/2020 3:08 AM GLOBAL COORDINATOR COVID: Recovered Comment:Added based on recent COVID infection. 05/25/2020 05/25/2020 09/22/2020 3:05 AM C DT COVID: Suspected 05/27/2022 05/27/2022 05/27/2022 7:01 PM GLOBAL COORDINATOR documented as of this encounter Care Teams Revenue Manager Relationship Specialty Start Date End Date Unknown, Notinfile PCP - General 04/20/18 11/24/18 No, Physician PCP - General 11/25/18 documented as of this encounter
--- OUTSIDE RECORDS SUMMARY | 2024-07-09 09:14 | XMS_ITS | Encounter Summary ---
Author Organization [facility] Facility Care Team Providers Care Tariff Compiling Clerk Name Role Phone Unknown, Notinfile Primary Care Provider Unavail able No, Physician Primary Care Provider [phone] Encounter Details Date Type Department Care Team (Latest Contact Info) Description 04/10/2018 Orders Only [facility] Provider, MD Katie [address] [place] [id number] Social History Tobacco Use Types Packs/Day Years Used Date Smoking Tobacco: Never Assessed Comments Unknown Sex and Gender Information Value Date Recorded Sex Assigned at Not on file Legal Sex Female 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 Historical Provider Final Res ult documented in this encounter Visit Diagnoses Not on filedocumented in this encounter Additional Health Concerns Infection Onset Date Last Indicated Resolved Time COVID: Suspected 05/11/2020 05/11/2020 05/12/2020 8:54 PM FLOOR COVERER APPRENTICE COVID19 05/11/2020 05/11/2020 05/25/2020 3:08 AM FLOOR COVERER APPRENTICE COVID: Recovered Comment:Added based on recent COVID infection. 05/25/2020 05/25/2020 09/22/2020 3:05 AM C DT COVID: Suspected 05/27/2022 05/27/2022 05/27/2022 7:01 PM FLOOR COVERER APPRENTICE documented as of this encounter Care Teams Tariff Compiling Clerk Relationship Specialty Start Date End Date Unknown, Notinfile PCP - General 04/20/18 11/24/18 No, Physician PCP - General 11/25/18 documented as of this encounter
== END 2024-07-09 08:48 | disposition home or self-care (01) ==
LOC: ANHIMG 08:51
PROVIDERS: PCP Nurse Practitioner Adult Health; Visit Provider Obstetrics & Gynecology
DX: Z12.31 Encounter for screening mammogram for malignant neoplasm of breast (principal)
CPT/HCPCS: 77063; 77067

== ENCOUNTER 2024-12-02 10:49 | Outpatient (CLI) | payer OTHER, SELFPAY ==
[2024-12-02 19:47] LABS: Add Urine Microscopic? YES; Appearance Urine Clear (Clear); Bacteria Urine 4+ /hpf; Bilirubin Urine Negative (Negative); Blood Urine Trace (Negative); Color Urine Yellow (Yellow); Glucose Urine UA Negative (Negative); Ketones Urine Negative (Negative); Leukocyte Esterase Ur 2+ LEU/UL (Negative); Need Manual Microscopic Reviewed; Nitrate Urine Negative (Negative); Non Pathogenic Casts 0-2; Protein Urine Negative (Negative); RBC Urine 0-2 /hpf (0-2); Specific Grav Ur 1.005 (1.001-1.035); Squamous Epithelial Cell Urine None Seen /hpf (Few); Urobilinogen Urine 0.2 mg/dL (<2.0); WBC Urine 0-5 /hpf (0-3); pH Urine 7.5 (5.0-9.0)
== END 2024-12-02 10:50 | disposition home or self-care (01) ==
LOC: ANHBWCLAB 10:51
PROVIDERS: PCP Nurse Practitioner Adult Health; Visit Provider Nurse Practitioner Adult Health
DX: R39.9 Unspecified symptoms and signs involving the genitourinary system (principal)
CPT/HCPCS: 81001; 87077; 87086; 87186